=== PATIENT | female | born 1995 | race Two or more races ===

== ENCOUNTER 2024-02-18 11:57 | Day surgery (SDC) | payer MEDICAID, SELFPAY ==
[2024-02-18] VITALS (11 sets, daily range): BP systolic 95–125; BP diastolic 61–78; PULSE 70–94; RESP 13–20; TEMP 36.2–36.7; O2SAT 93–100; BMI 23.8; BMI 24.0
--- NOTE | 2024-02-18 12:13 | EDNOTE_ITS ---
ED Abdominal Pain E/HPI General Chief Complaint: Abdominal Pain Stated complaint: POSSIBLE APPENDICITS Time seen by provider: 02/18/24 12:01 Arrival date/time: 02/18/24 11:57 RME / HPI RME / HPI narrative: 28-year-old female patient with no significant past medical history, came in for evaluation regarding right lower quadrant pain. Patient was sent to us by PCP. Onset of symptoms for the last 2 days as worsening right lower quadrant pain, described as dull ache, severity 5 out of 10. Patient denies any vomiting denies any fever denies any dysuria denies any diarrhea. Patient last menstruation was January 12. Denies any abdominal surgery. No medications taken prior to arrival. Related Data Home Medications ?Medication ?Instructions ?Recorded ?Confirmed No Known Home Medications 02/18/24 02/18/24 Allergies Allergy/AdvReac Type Severity Reaction Status Date / Time No Known Allergies Allergy Verified 02/18/24 12:00 Review of Systems Review of Systems Narrative Review of Systems: Review of system reviewed and within normal limits except mentioned in HPI ED Exam Narrative Physical exam: VITAL SIGNS: Reviewed. GENERAL APPEARANCE: Alert and interactive, follows commands, no acute distress, HEAD AND FACE: Non-traumatic. ENT: PERRL, pink conjunctivitis, eyelid no trauma, Mucous membrane moist. NECK: Supple, nontender, no nuchal rigidity. CHEST: No tenderness, no crepitus, no paradoxical movement, no retractions. LUNGS: Clear, well ventilated, symmetric, no rales, no wheezing, no ronchi, no stridor, good breath sounds bilaterally. HEART: Regular rate, regular rhythm, no murmur, no gallops. ABDOMEN: Soft, positive bowel sounds, nondistended, no guarding, right lower quadrant tenderness, no rebound, no masses, RECTAL: Deferred. GENITAL: Deferred. NEUROLOGICAL: Gross motor function intact sensory function intact, Appropriate for age. MUSCULOSKELETAL: low back nontender, full range of motion. EXTREMITIES: Nontender, full range of motion. SKIN: Color pink, dry, no rash, no lacerations, no abrasions, no contusions. LYMPHATICS: Deferred. Course Quality Measures none Orders Category Date Time Status COVID-19 Screening Questionnaire NOW Care 02/18/24 17:[address] Screening NOW Care 02/18/24 13:31 Active Decision to Admit X1 Care 02/18/24 17:42 Completed Insert IV NOW Care 02/18/24 17:57 Active Consult to General Surgery Stat Cons 02/18/24 17:[address] abdomen pelvis w con Stat Exams 02/18/24 13:30 Completed CBC Stat Lab 02/18/24 12:25 Completed Comprehensive Metabolic Panel Stat Lab 02/18/24 12:25 Completed HCG Qualitative,Urine Stat Lab 02/18/24 13:00 Completed Partial Thromboplastin Time Stat Lab 02/18/24 12:25 Completed Prothrombin Time with INR Stat Lab 02/18/24 12:25 Completed Urinalysis, C/S if Indicated Stat Lab 02/18/24 13:00 Completed Morphine Inj Med 02/18/24 17:37 Discontinued 4 mg IVP Q1H STA Ondansetron Inj [Zofran Inj] Med 02/18/24 17:37 Discontinued 4 mg IV X1 ONE Piper/Tazo 3.375 gm [Zosyn] Med 02/18/24 17:37 Discontinued 3.375 gm in 50 ml IV X1 Sodium Chloride 0.9% 1000 ml [Ns] 1,000 ml Med 02/18/24 17:38 Discontinued IV 999 mls/hr Vital Signs Vital signs: Vital Signs Temperature 97.8 F 02/18/24 12:13 Pulse Rate 72 02/18/24 12:13 Respiratory Rate 17 02/18/24 12:13 Blood Pressure 125/61 02/18/24 12:13 Pulse Oximetry (%) 98 02/18/24 12:13 Oxygen Delivery Method Room Air 02/18/24 12:13 Abdominal Pain MDM MDM Narrative MDM Narrative:: 28-year-old female patient with no significant past medical history, came in for evaluation regarding right lower quadrant pain. Patient was sent to us by PCP. Onset of symptoms for the last 2 days as worsening right lower quadrant pain, described as dull ache, severity 5 out of 10. Patient denies any vomiting denies any fever denies any dysuria denies any diarrhea. Patient last menstruation was January 12. Denies any abdominal surgery. No medications taken prior to arrival. Laboratory workup significant for leukocytosis 12,000. The rest of the labs unremarkable. CT scan of the abdomen/pelvis showed acute appendicitis. Patient received IV fluids, IV Zosyn IV morphine and Zofran. Spoke with general surgeon, Dr. Harry, who admitted the patient. For acute appendicitis Patient data External records reviewed:: None Clinical information provided by:: patient Social determinants that could affect healthcare access:: none Patient has the following chronic illnesses:: None How is presenting disease/condition affected by chronic disease/condition?: no chronic disease Evaluation data The following diagnostics were reviewed and interpreted by me:: lab results and radiology exam(s) Lab and/or radiology exams considered but not ordered:: None Interpretation Summary: Leukocytosis 12.2. CT scan of the abdomen pelvis showed acute appendicitis Medications / Prescriptions Medications or Prescriptions considered but not ordered:: None Medication administrations:: Medication Administration History Acetaminophen (Acetaminophen 325 Mg Tablet) 650 mg PO Q6H PRN PRN Reason: Fever >101.5 Stop: 03/19/24 18:19 Potassium Chloride/Dextrose/Sod Cl (Kcl 20 Meq/L In D5-1/2ns) 20 meq in 1,000 mls @ 75 mls/hr IV .[id number] ELIZA Stop: 03/19/24 18:29 Last Admin: 02/18/24 19:50 Dose: 75 mls/hr Documented By: AGUILA Ondansetron HCl (Ondansetron Inj 2 Mg/Ml Inj 2 Ml) 4 mg IV Q6H PRN PRN Reason: NAUSEA OR VOMITING Stop: 03/19/24 18:19 Discontinued Medications Bupivacaine HCl (Bupivacaine Mpf 0.5% 10 Ml Vial) Confirm Administered Dose 20 ml .ROUTE .STK-MED ONE Stop: 02/18/24 19:52 Fentanyl Citrate (Fentanyl Cit Inj 50 Mcg/Ml Amp 2ml) Confirm Administered Dose 100 mcg .ROUTE .STK-MED ONE Stop: 02/18/24 20:41 Glycopyrrolate (Glycopyrrolate Inj 0.2 Mg/Ml Vial 5 Ml) Confirm Administered Dose 1 mg .ROUTE .STK-MED ONE Stop: 02/18/24 20:49 Hydromorphone HCl (Hydromorphone Inj 2 Mg/Ml Vial) Confirm Administered Dose 2 mg .ROUTE .STK-MED ONE Stop: 02/18/24 20:41 Piperacillin/Tazobactam/Dextrose (Zosyn) 3.375 gm in 50 mls @ 100 mls/hr IV X1 ONE Stop: 02/18/24 18:06 Last Infusion: 02/18/24 18:53 Dose: Infused Documented By: Admin: 02/18/24 18:11 Dose: 100 mls/hr Documented By: TREVOR Sodium Chloride (Ns) 1,000 mls @ 999 mls/hr IV .Q1H1M ONE Stop: 02/18/24 18:38 Last Infusion: 02/18/24 19:34 Dose: Infused Documented By: Admin: 02/18/24 18:11 Dose: 999 mls/hr Documented By: TREVOR Cefoxitin Sodium 2 gm/ Sodium (Chloride) 50 mls @ 100 mls/hr IV X1 ONE Stop: 02/18/24 18:49 Last Infusion: 02/18/24 20:00 Dose: Infused Documented By: Admin: 02/18/24 19:26 Dose: 100 mls/hr Documented By: GENNA Acetaminophen (Ofirmev Inj) Confirm Administered Dose 100 mls @ ud IV .STK-MED ONE Stop: 02/18/24 20:51 Midazolam HCl (Midazolam Inj 1 Mg/Ml Vial 2 Ml) Confirm Administered Dose 2 mg .ROUTE .STK-MED ONE Stop: 02/18/24 20:51 Morphine Sulfate (Morphine Sulf Inj 10 Mg/Ml Vial) 4 mg IVP Q1H STA Stop: 02/18/24 17:38 Last Admin: 02/18/24 18:11 Dose: Not Given Documented By: TREVOR Non-Admin Reason: Patient Refused Ondansetron HCl (Ondansetron Inj 2 Mg/Ml Inj 2 Ml) 4 mg IV X1 ONE; Protocol Stop: 02/18/24 17:38 Last Admin: 02/18/24 18:11 Dose: Not Given Documented By: TREVOR Non-Admin Reason: Patient Refused Propofol (Propofol Inj 10 Mg/Ml Vial 20 Ml) Confirm Administered Dose 200 mg IV .STK-MED ONE Stop: 02/18/24 20:41 Rocuronium [place] (Rocuronium Inj 10 Mg/Ml Vial 10 Ml) Confirm Administered Dose 100 mg .ROUTE .STK-MED ONE Stop: 02/18/24 20:41 IV Zosyn fluids morphine and Zofran Consultations Consultation(s) initiated? (list below): Yes Consultation #1 (Physician, Specialty, Details): Dr. Harry, general surgeon: Diagnosis Differential diagnosis abdominal pain: abdominal pain, acute appendicitis and constipation Most likely diagnosis given after review of the tests above:: Acute appendicitis Admission Indicated Admission indicated?: indicated Admission Request Was there a request for admission?: Yes Admission Attestation Admission request attestation: Dr. Harry agrees to accept the patient for admission. Disposition Plan Disposition Plan: Admit Discharge Plan Plan Patient Disposition: Other Care w/in Hosp ([facility]) Problem List Clinical Impression: Unspecified acute appendicitis
[2024-02-18 12:44] LABS: Basophils % (Auto) 0 % (0-2.5); Eosinophils # (Auto) 0.1 Thou/mm3 (0.0-0.5); Eosinophils % (Auto) 1 % (0-10); Hematocrit 38.1 % (36.0-46.0); Hemoglobin 12.7 g/dL (12.0-16.0); Immature Granulocytes % (Auto) 0 % (0-0); Immature Granulocytes Auto 0.03 Thou/mm3 (0.00-0.00); Lymphocytes # (Auto) 2.5 Thou/mm3 (1.0-4.8); Lymphocytes % (Auto) 20 % (10-50); Mean Corpuscular HGB Conc 33.3 g/dl (31.0-37.0); Mean Corpuscular Hemoglobin 29.8 pg (25.0-35.0); Mean Corpuscular Volume 89 fL (80-100); Monocytes # (Auto) 0.9 Thou/mm3 (0.0-0.8); Monocytes % (Auto) 7 % (0-12); Neutrophils # (Auto) 8.7 Thou/mm3 (1.8-7.7); Neutrophils % (Auto) 72 % (37-80); Nucleated Red Blood Cell % 0 /100 WBC (0); Platelet Count 364 Thou/mm3 (140-440); RDW Standard Deviation 42.3 fL (36.4-46.3); Red Blood Count 4.26 Miln/mm3 (4.00-5.20); White Blood Count 12.2 Thou/mm3 (3.6-11.0)
[2024-02-18 12:58] LABS: Partial Thromboplastin Time 28.2 Seconds (22.0-36.0); Prothrombin Time 11.3 Seconds (9.0-12.2)
[2024-02-18 13:02] LABS: Alanine Aminotransferase 18 U/L (10-49); Albumin, Serum 4.7 gm/dL (3.5-5.0); Albumin/Globulin Ratio 1.6 (1.2-2.2); Alkaline Phosphatase 158 U/L (46-116); Anion Gap 6 (7-16); Aspartate Amino Transferase 23 U/L (0-34); BUN/Creatinine Ratio 12 Ratio (12-20); Bilirubin,Total 0.8 mg/dL (0.3-1.2); Blood Urea Nitrogen 7 mg/dL (9-23); Calcium 9.2 mg/dL (8.3-10.6); Calcium (Corrected) 9.2 mg/dL (8.5-10.1); Carbon Dioxide 25.9 mMol/L (20.0-31.0); Chloride 108 mMol/L (98-107); Creatinine (Component) 0.6 mg/dL (0.6-1.3); Estimated Creatinine Clearance 97.9 mL/min (>60); Glucose 85 mg/dL (74-106); Osmolality,Calculated 276 (275-295); Potassium 3.9 mMol/L (3.4-5.1); Sodium 140 mMol/L (136-145); Total Protein 7.7 gm/dL (5.7-8.2); eGFR > 60 See Note
[2024-02-18 13:07] LABS: Collection Type, Urine Clean Catch
[2024-02-18 13:23] LABS: HCG Qualitative,Urine Negative
--- NOTE | 2024-02-18 13:30 | XR_ITS ---
Examination: CT abdomen with intravenous contrast CT pelvis with intravenous contrast 2-D coronal reconstructions 2-D sagittal reconstructions Date and time of exam:February 18, 2024 1633 hours INDICATIONS: Onset right lower abdominal pain beginning 3 days ago. CTDI: vol (mGy) 6.70 DLP: (mGycm) 338 Technique: Multiple axial sections of the abdomen and pelvis have been obtained. 64 slice high-resolution scanner used. 3 mm axial sections have been obtained, post intravenous injection cc Isovue-370 2-D sagittal, coronal reconstructions obtained. Low dose protocols were performed. One or more of the following dose reduction techniques were used; automated exposure control, adjustment of the mA and/or KV according to patient size, use of iterative reconstruction technique. Findings: No focal liver or splenic lesions No gallstones No pancreatic or adrenal mass No renal or ureteral calculi, no hydronephrosis Aorta normal size Fluid-filled enlarged inflamed appendix retrocecal, axial images 107 through 129 No pelvic abscess Urinary bladder intact Anteverted uterus with no adnexal mass The osseous structures are intact IMPRESSION: Acute appendicitis, negative for peritonitis, negative for pelvic abscess
[2024-02-18 13:59] LABS: Bacteria,Urine Rare; Bilirubin,Urine Negative (Negative); Blood,Urine Negative (Negative); Color,Urine Lt-Yellow (Lt Yel-Yel); Culture Indicated,Urine Not Indicated; Glucose, Urine Negative (Negative); Ketones,Urine Negative (Negative); Leukocyte Esterase,Urine Negative (Negative); Nitrite,Urine Negative (Negative); Protein,Urine Negative (Neg - Trace); RBC,Urine 2 /hpf (0-3); Specific Gravity,Urine 1.019 (1.001-1.035); Squamous Epithelial Cell,Urine 15 /hpf (0-5); Urobilinogen,Urine Negative mg/dL (0.0-1.0); WBC,Urine 2 /hpf (0-5)
[2024-02-18 14:03] LABS: Clarity,Urine Hazy (Clear/Hazy)
[2024-02-18] MEDS: PIPER/TAZO 3.375 GM 3.375 GM/50 ML BAG IV (18:11)
[2024-02-18] MEDS: SODIUM CHLORIDE 0.9% 1000 ML 1,000 ML 999 ML IV (18:11)
[2024-02-18] MEDS: CEFOXITIN 2 GM in SODIUM CHLORIDE 0.9% (P) 50 ML IV (19:26)
[2024-02-18] MEDS: KCL 20 mEq/L in D5-1/2NS 20 MEQ/1,000 ML BAG 75 MEQ IV (19:50)
--- NOTE | 2024-02-18 20:07 | ESHP_ITS ---
[facility] Date of Admission 02/18/24 18:20 Chief Complaint Chief Complaint: Right lower quadrant abdominal pain with nausea and vomiting HPI 28-year-old female without significant past medical history presented to the em ergency department with acute onset of abdominal pain. Her pain started about 2 days ago. The pain was initially intermittent. Since earlier today her pain has become persistent, progressively worse and localized over right lower quadrant. She has had nausea and vomiting, but denies fever, chills, diarrhea, constipation or dysuria. She denies having similar symptoms in the past. Review of Systems Constitutional Constitutional: Denies chills and Denies fever(s) Cardiovascular Cardiovascular: Denies chest pain Respiratory Respiratory: Denies cough Gastrointestinal Gastrointestinal: Reports abdominal pain, Reports nausea and Reports vomiting Genitourinary Genitourinary: Denies difficulty voiding Hematologic/Lymphatic Hematologic/Lymphatic: Denies easy bleeding and Denies easy bruising Past Medical History Surgical History OTHER SURGICAL HX: No surgeries in the past Social History SMOKING STATUS: Never smoker SUBSTANCE USE: does not use ALCOHOL: Never Meds Home Medications and Allergies Home Medications ?Medication ?Instructions ?Recorded ?Confirmed ?Type No Known Home Medications 02/18/24 02/18/24 History Allergies Allergy/AdvReac Type Severity Reaction Status Date / Time No Known Allergies Allergy Verified 02/18/24 12:00 Exam Vital Signs Temp Pulse Resp BP Pulse Ox O2 Del Method 98 F 75 16 124/77 99 Room Air 02/18/24 16:58 02/18/24 16:58 02/18/24 16:58 02/18/24 16:58 02/18/24 16:58 02/18/24 16:58 Constitutional Constitutional: no acute distress Routine Respiratory Exam Respiratory: Present CTA bilaterally Routine Cardiovascular Exam Cardiovascular: Present RRR Routine Abdominal Exam Abdominal: Present soft, normoactive bowel sounds and tenderness (Right lower quadrant tenderness to palpation with guarding, no rebound tenderness or peritonitis at this time); Absent distended Assessment & Plan Problem List (1) Unspecified acute appendicitis: Qualifiers: Acute appendicitis type: unspecified acute appendicitis type Qualified Code(s): K35.80 - Unspecified acute appendicitis Status: Acute Plan Will take patient to operating room for laparoscopic possible open appendectomy. Risks include but not limited to infection, bleeding, injury to bowel, bladder, uterus, ovaries, surround neurovascular structures discussed with the patient via senior corporate recruiter. Benefits alternatives explained to her, all her questions answered, she agreed and consented to proceed with the operation. Quality Measures Quality Measures none
--- NOTE | 2024-02-18 20:22 | PC.NURSE ---
SPOKE TO TEA-RN FROM SURGERY AND GAVE REPORT. PT TO BE TRANSFER TO OR SOON.
--- NOTE | 2024-02-18 21:26 | PD.SUROPNT ---
Date of Procedure 02/18/24 Pre Op Diagnosis Acute appendicitis Post Op Diagnosis Acute appendicitis Procedure Laparoscopic appendectomy Findings Inflamed, dilated and hyperemic appendix without perforation Procedure Description Patient was brought into the operating room in supine position. After administration of general endotracheal anesthesia, abdomen was prepped and draped in standard surgical manner. A Veress needle was inserted through the umbilicus and pneumoperitoneum was obtained up to 15 mmHg. The Veress needle was removed and a 5 mm umbilical incision was made. A 5 mm trocar was placed and laparoscopic camera was inserted. Under direct visualization a laparoscopic camera a 5 mm trocar placed in suprapubic region and a 10 mm trocar placed in left lower quadrant. The abdomen was inspected, the cecum was identified and followed until the appendix was identified. The appendix was noted to be inflamed, dilated and hyperemic without perforation. A window was created between the appendix and mesoappendix and the appendix was divided near the appendix and cecal junction with blue Endo PÉREZ stapling device. The mesoappendix was divided with garcia Endo PÉREZ stapling device. The appendix was placed inside an Endo Catch and removed from the abdomen utilizing left lower quadrant trocar site. Abdomen and pelvis copiously and thoroughly washed and irrigated, all the fluids were suctioned and the suctioned fluid returned clear. Hemostasis was adequate and satisfactory, staple lines were intact without bleeding or any leakage. Left lower quadrant trocar sites fascial defect was closed with 0 Vicryl using Endo closure device. Instruments and trocars removed, pneumoperitoneum was evacuated and the incisions closed with 4-0 Monocryl subcuticular fashion. Instruments, needles and sponge counts were reported to be correct ??2. Patient tolerated the procedure well, was extubated, breathing spontaneously and without difficulty and was transferred to postanesthesia care in stable condition. Anesthesia GETA and local Pathology / specimen Other (Appendix) Estimated Blood Loss 10 Condition Stable Disposition PACU Surgeon Mita Harry MD Surgical Staff Operation Date: 02/18/24 20:45 Case Staff FOOD SERVICE COORDINATOR: Herb Cordova RN First Assistant: Jennifer Lilly
--- NOTE | 2024-02-18 21:30 | SUR.PHASEI ---
Pt. arrived to recovery via gurney, eyes closed, responds to verbal commands, VSS, no c/o pain of nausea at this time, lung sounds clear, equal expansion arianne., pt. receiving 6 liters 02 via oxymask, IV flushed and patent, lap sites x4 to abdomen, dermabond intact, no active bleeding or redness noted. Report received from Andrei ALVAREZ and Herb SCHUSTER.
--- NOTE | 2024-02-18 21:57 | SUR.PHASEI ---
Called and gave report on pt. s/p surgery to Noreen ALVAREZ on M/S unit.
--- NOTE | 2024-02-18 22:15 | SUR.PHASEI ---
Pt. transferred to room 372 via gurney with all of belongings by staff, VSS, no c/o pain or nausea at this time, lap sites x4 CDI, IV flushed and patentTyesha RN assumed care of pt.
[2024-02-18] MEDS: ONDANSETRON INJ 2 MG/ML INJ 2 ML 4 MG IV (23:10)
[2024-02-19] MEDS: HYDROcodone/APAP 5/325 TABLET 1 TAB PO (03:49)
[2024-02-19 04:00] VITALS: BP 108/60; PULSE 93; RESP 17; TEMP 36.2; O2SAT 98
[2024-02-19 08:00] VITALS: BP 100/50; PULSE 62; RESP 17; TEMP 36.3; O2SAT 99
[2024-02-19] MEDS: bisacodyL 5 MG TABEC 10 MG PO (08:09)
--- NOTE | 2024-02-19 11:17 | PC.SS ---
Patient is alert/oriented. Patient admitted for acute appendicitis. Patient is independent with ADL's. No DMe. Spouse is listed as alt medical decision maker. Patient went to surgery yesterday with Dr. Harry. Patient d/c plan is to return home. PCP: Dr. Ohara. SS will follow up with any changes in d/c plan. Family to transport home when medically stable and ready for discharge.
[2024-02-19 12:00] VITALS: BP 127/65; PULSE 84; RESP 16; TEMP 36.3; O2SAT 97
--- NOTE | 2024-02-19 12:44 | ESPR_ITS ---
Documentation for date of: 02/19/24 Subjective Subjective Narrative: Patient is seen and examined. Pain is improving. She is tolerating diet without nausea or vomiting Exam Vital Signs Temp Pulse Resp BP Pulse Ox O2 Del Method O2 Flow Rate 97.3 F 62 17 100/50 L 99 Room Air 2 02/19/24 08:00 02/19/24 08:00 02/19/24 08:00 02/19/24 08:00 02/19/24 08:00 02/19/24 08:00 02/18/24 21:40 Constitutional Constitutional: no acute distress Routine Abdominal Exam Abdominal: Present soft, normoactive bowel sounds and tenderness (Mild rosana- incisional tenderness. Incisions are clean, dry and intact); Absent distended Assessment & Plan Assessment Additional comments: Postop day #1 status post laparoscopic appendectomy Plan Will discharge home Procedures Procedures Laparoscopic appendectomy
== END 2024-02-19 13:27 | disposition home or self-care (01) ==
LOC: SERX 12:23 → SERHOLD 20:09 → S2EX 02-19 07:47 → S3SX 02-19 07:48
PROVIDERS: Nurse Practitioner Family; Emergency Provider Emergency Medicine; PCP Obstetrics & Gynecology; Visit Provider Surgery
PROC: 0DTJ4ZZ Resection of Appendix, Percutaneous Endoscopic Approach (ICD-10-PCS; CPT 44970; principal; 2024-02-18 20:30)
DX: K35.80 Unspecified acute appendicitis (principal)
CPT/HCPCS: 44970; 36415; 74177; 80053; 81001; 81025; 85025; 85610; 85730; 96361; 96365; 96367; 99285; A4217; A4649; J0131; J0694; J2250; J2405; J2543; J2704; J3010; J3480; J3490; J7030; J7050; Q9967; A9270; J1596

== ENCOUNTER 2024-02-23 15:34 | Emergency (ER) | payer MEDICAID, SELFPAY ==
[2024-02-23] VITALS (7 sets, daily range): BP systolic 115–117; BP diastolic 61–67; PULSE 101–123; RESP 18–23; TEMP 36.9–39.6; O2SAT 97–99; BMI 24.0
--- NOTE | 2024-02-23 15:36 | EKG_ITS ---
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
--- NOTE | 2024-02-23 15:37 | XR_ITS ---
Examination: CT abdomen with intravenous contrast CT pelvis with intravenous contrast 2-D coronal reconstructions 2-D sagittal reconstructions Date and time of exam:August 22, 2024 at 1857 hrs. Comparison February 18, 2024 Indications: Acute appendicitis February 18, 2024, postop abdominal pain and fever 4 days. CTDI: vol (mGy) and DLP: (mGycm) 361 Technique: Multiple axial sections of the abdomen and pelvis have been obtained. 64 slice high-resolution scanner used. 3 mm axial sections have been obtained, post intravenous injection 60 cc Isovue-370 2-D sagittal, coronal reconstructions obtained. Low dose protocols were performed. One or more of the following dose reduction techniques were used; automated exposure control, adjustment of the mA and/or KV according to patient size, use of iterative reconstruction technique. Findings: Atelectasis versus mild pneumonia both bases, clinical correlation advised No focal liver or splenic lesion No gallstones No pancreatic or adrenal mass No hydronephrosis Aorta normal size Small fat-containing umbilical hernia Absent appendix, No pericecal or pelvic abscess No uterine mass Right adnexal ovarian follicular cysts, the largest 16 mm No free fluid in the pelvis Urinary bladder intact Mild small bowel ileus Impression: Atelectasis versus pneumonia both bases, suggest PA chest follow-up Post appendectomy No pericecal or pelvic abscess Small right ovarian follicular cysts, the largest 16 mm
--- NOTE | 2024-02-23 15:49 | PD.EDADULT ---
ED General RME/HPI General Chief complaint: Abdominal Pain Stated complaint: ABD PAIN, FEVER Time Seen by Provider: 02/23/24 15:36 Arrival date/time: 02/23/24 15:34 RME / HPI RME / HPI narrative: DR. MALIN MAIN ED EVALUATION: 28 year old female with past medical history significant for gallstones and recent appendectomy Dr. Harry 02/18/24 presents to the Emergency Department [facility] with complaint of abdominal pain with associated fever and chills. Symptoms are moderate. Related Data Previous Rx's ?Medication ?Instructions ?Recorded docusate sodium 100 mg capsule 100 mg PO BID #30 caps 02/19/24 (Colace) hydrocodone 5 mg-acetaminophen 325 1 tab PO Q6H PRN pain (scale score 02/19/24 mg tablet 7-10) #10 tabs ibuprofen 600 mg tablet 600 mg PO Q8H PRN pain (scale 02/19/24 score 4-6) #15 tabs Allergies Allergy/AdvReac Type Severity Reaction Status Date / Time No Known Allergies Allergy Verified 02/18/24 21:40 Review of Systems Review of Systems Systems Reviewed: All systems reviewed, normal except as documented Narrative Review of Systems: GEN: + fever, + chills, no weight loss EYES: No discharge, no visual changes, no pain HEENT: No ear pain, no congestion, no sore throat PULM: No shortness of breath, no cough, no congestion CV: No chest pain, no dyspnea on exertion, no palpitations GI: No nausea, no vomiting, no diarrhea, + abdominal pain (see HPI), no constipation : No frequency, no urgency and no dysuria MUSC/SKEL: No joint pain, no back pain SKIN: No rash PSYCH: No hallucinations, no depression HEME/LYMPH: No easy bleeding or bruising tendencies NEURO: No weakness, no headache Past Medical History Social History SMOKING STATUS: Never smoker SUBSTANCE USE: does not use ALCOHOL: Never ED Exam Narrative Physical exam: GENERAL APPEARANCE: alert and oriented x 4, well-developed, well-nourished; febrile, 103.2 F. Diaphoretic. VITALS: All vitals were reviewed and the pulse ox is 97% on room air, which is normal according to my interpretation. HEENT: Normocephalic, atraumatic; pupils equal, round, reactive to light; EOMI; mucous membranes pink, moist; oropharynx clear NECK: Supple LUNGS: CTABL; no wheezes, no rales, no rhonchi HEART: Tachycardic at 121, normal S1, S2; no murmurs ABDOMEN: there is diffuse tenderness on palpation BACK: no CVA tenderness EXTREMITIES: atraumatic; no edema NEUROLOGIC: awake; alert and oriented x4; cranial nerves II-XII grossly intact; no focal sensory or motor deficits PSYCHIATRIC: appropriate mood and affect SKIN: warm, diaphoretic, normal color; no rashes Course Course Course Narrative: 1604: Sepsis alert initiated. Orders made at this time are congruent with ED Adult Sepsis Order List. Re-evaluation is to be completed. 1537: Fluids started. 1634: Sepsis reassessment performed consisting of lab review, vitals, physical exam including auscultation of heart, lungs, and visual evaluation of capillary refills, mucosal membranes and extremities. 1800: Patient was signed out to Dr. Lawrence. Past medical, surgical, social and family history reviewed. Vitals and home medications reviewed. Results and treatment plan discussed. They will assume the care of the patient at this time and will follow the patient, pending remainder of diagnostic tests and final dispostion. Quality Measures Current suspected stage: sepsis Possible source: GI tract/intra-abdominal Blood cultures ordered: yes Antibiotic ordered: Yes Pertinent labs: 02/23/24 16:10 Lactic Acid 1.2 mMol/L (0.4-2.0) Procalcitonin < 0.04 ng/ml (0.0-0.49) sepsis Orders Category Date Time Status CT Screening NOW Care 02/23/24 15:37 Completed Project Inspector NOW Care 02/23/24 15:36 Completed EKG (ED ONLY) *Do not use* NOW Care 02/23/24 15:36 Completed Insert IV NOW Care 02/23/24 16:[address] abdomen pelvis w con Stat Exams 02/23/24 15:37 Completed EKG (ED Only) Stat Exams 02/23/24 15:36 Draft Beta HCG,Quantitative Stat Lab 02/23/24 16:10 Completed Blood Culture (Lab) Stat Lab 02/23/24 16:05 Completed CBC Stat Lab 02/23/24 16:10 Completed Comprehensive Metabolic Panel Stat Lab 02/23/24 16:10 Completed Lactate (Lactic Acid) Stat Lab 02/23/24 16:10 Completed Lipase Stat Lab 02/23/24 16:10 Completed Magnesium Stat Lab 02/23/24 16:10 Completed Procalcitonin Stat Lab 02/23/24 16:10 Completed Urinalysis Stat Lab 02/23/24 19:50 Completed Urine Culture Stat Lab 02/23/24 19:50 Completed Acetaminophen Tab [Tylenol ES Tab] Med 02/23/24 16:34 Discontinued 1,000 mg PO X1 ONE Piper/Tazo Inj [Zosyn Inj] 3.375 gm Med 02/23/24 16:03 Discontinued Sodium Chloride 0.9% (P) [Ns 0.9% (P)] 50 ml IV X1 Sodium Chloride 0.9% 1000 ml [Ns] 1,000 ml Med 02/23/24 15:37 Discontinued IV 999 mls/hr Vital Signs Vital signs: Vital Signs Temperature 100.9 F H 02/23/24 15:36 Pulse Rate 119 H 02/23/24 15:36 Respiratory Rate 20 02/23/24 15:36 Blood Pressure 115/61 02/23/24 15:36 Pulse Oximetry (%) 97 02/23/24 15:36 Oxygen Delivery Method Room Air 02/23/24 15:36 [facility] Patient data External records reviewed:: [facility] previous records (Reviewed appendectomy note by Dr. Harry, dated 02/18/24.) and EMS form Clinical information provided by:: patient and EMS Social determinants that could affect healthcare access:: none Patient has the following chronic illnesses:: Gallstones and appendectomy Dr. Harry 02/18/24. How is presenting disease/condition affected by chronic disease/condition?: exacerbated by Evaluation data The following diagnostics were reviewed and interpreted by me:: lab results, radiology exam(s) and EKG tracing(s) (sinus tachycardia, rate 126, no STEMI) Lab and/or radiology exams considered but not ordered:: none Interpretation Summary: Pending diagnostic tests. Medications Medications considered but not ordered:: none Medication administrations:: Medication Administration History Discontinued Medications Acetaminophen (Acetaminophen 500 Mg Tablet) 1,000 mg PO X1 ONE Stop: 02/23/24 16:35 Last Admin: 02/23/24 16:51 Dose: 1,000 mg Documented By: DO Sodium Chloride (Ns) 1,000 mls @ 999 mls/hr IV .Q1H1M ONE Stop: 02/23/24 16:37 Last Infusion: 02/23/24 18:29 Dose: Infused Documented By: Admin: 02/23/24 16:52 Dose: 999 mls/hr Documented By: DO Piperacillin Sod/Tazobactam (Sod 3.375 gm/ Sodium Chloride) 50 mls @ 100 mls/hr IV X1 ONE Stop: 02/23/24 16:32 Last Infusion: 02/23/24 18:27 Dose: Infused Documented By: Admin: 02/23/24 16:52 Dose: 100 mls/hr Documented By: DO see above Consultations Consultation(s) initiated? (list below): No Diagnosis Differential Diagnosis ED Complaint MDM: sepsis, surgical site infection, DVT Most likely diagnosis given after review of the tests above:: No official diagnoses at this time, still pending diagnostic tests. Patient signout to the shift manager provider. Admission Indicated Admission indicated?: indicated Explain why admission is indicated or not indicated:: No final disposition plan at this time, still pending diagnostic tests. Patient signout to the shift manager provider. Admission Request Was there a request for admission?: No Disposition Plan Disposition Plan: other (specify) (Patient signout to the shift manager provider. ) Medical Decision Making MDM Narrative MDM Narrative: I, Arely Gilliam, am scribing for and in the presence of Dr. Malin. Differential Diagnosis Differential Diagnosis: sepsis, surgical site infection, DVT Lab Data 02/23/24 16:10 02/23/24 16:10 Labs: Lab Results 02/23/24 02/23/24 Range/Units 16:10 19:50 WBC 16.5 H (3.6-11.0) Thou/mm3 RBC 4.28 (4.00-5.20) Miln/mm3 Hgb 12.9 (12.0-16.0) g/dL Hct 38.1 (36.0-46.0) % MCV 89 (80-100) fL MCH 30.1 (25.0-35.0) pg MCHC 33.9 (31.0-37.0) g/dl RDW Std Deviation 41.5 (36.4-46.3) fL Plt Count 323 D (140-440) Thou/mm3 Neut % (Auto) 84 H (37-80) % Lymph % (Auto) 9 L (10-50) % [place]ill % (Auto) 7 (0-12) % Eos % (Auto) 0 (0-10) % Baso % (Auto) 0 (0-2.5) % Neut # (Auto) 13.8 H (1.8-7.7) Thou/mm3 Lymph # (Auto) 1.5 (1.0-4.8) Thou/mm3 Traill # (Auto) 1.1 H (0.0-0.8) Thou/mm3 Eos # (Auto) 0.1 (0.0-0.5) Thou/mm3 Baso # (Auto) 0.0 (0.0-0.2) Thou/mm3 Immature Gran # (Auto) 0.05 H (0.00-0.00) Thou/mm3 Absolute Nucleated RBC 0.00 (0.00-0.00) Thou/mm3 Immature Gran % 0 (0-0) % Nucleated RBC % 0 (0) /100 WBC Sodium 138 (136-145) mMol/L Potassium 3.9 (3.4-5.1) mMol/L Chloride 103 (98-107) mMol/L Carbon Dioxide 25.6 (20.0-31.0) mMol/L Anion Gap 9 (7-16) BUN 8 L (9-23) mg/dL Creatinine 0.6 (0.6-1.3) mg/dL Estim Creat Clear Calc Not Performed. eGFR > 60 (60 - ) See Note BUN/Creatinine Ratio 13 (12-20) Ratio Glucose 95 (74-106) mg/dL Calculated Osmolality 273 L (275-295) Lactic Acid 1.2 (0.4-2.0) mMol/L Calcium 9.3 (8.3-10.6) mg/dL Corrected Calcium 9.3 (8.5-10.1) mg/dL Magnesium 1.8 (1.6-2.6) mg/dL Total Bilirubin 0.8 (0.3-1.2) mg/dL AST 17 (0-34) U/L ALT 17 (10-49) U/L Alkaline Phosphatase 148 H (46-116) U/L Total Protein 7.7 (5.7-8.2) gm/dL Albumin 4.8 (3.5-5.0) gm/dL Globulin 2.9 (2.3-3.5) gm/dL Albumin/Globulin Ratio 1.7 (1.2-2.2) Lipase 30 (12-53) U/L Procalcitonin < 0.04 (0.0-0.49) ng/ml Beta HCG, Quant < 1 (<5.0) mIU/mL Ur Collection Type Clean Catch Urine Color Colorless A (Lt Yel-Yel) Urine Clarity Clear (Clear/Hazy) Urine pH 7.0 (5.0-7.0) Ur Specific [place] 1.029 (1.001-1.035) Urine Protein Negative (Neg - Trace) Urine Glucose (UA) Negative (Negative) Urine Ketones Negative (Negative) Urine Blood Negative (Negative) Urine Nitrite Negative (Negative) Urine Bilirubin Negative (Negative) Urine Urobilinogen (Auto) Negative (0.0-1.0) mg/dL Ur Leukocyte Esterase Negative (Negative) Urine RBC < 1 (0-3) /hpf Urine WBC 0 (0-5) /hpf Ur Squamous Epith Cells 1 (0-5) /hpf Urine Bacteria None (None) Critical Care Time Critical Care Time Critical Care Time: Yes Total Critical Care Time (min.): 30 Attestation: For sepsis The high probability of sudden, clinically significant deterioration in the patient?s condition required the highest level of my preparedness to intervene urgently. The services I provided to this patient were to treat and/or prevent clinically significant deterioration. Services included the following: chart data review, reviewing nursing notes and/or old charts, documentation time, interventional sale consultant collaboration regarding findings and treatment options, medication orders and management, direct patient care, vital sign assessments and ordering, interpreting and reviewing diagnostic studies and lab tests. Aggregate critical care time includes only time during which I was engaged in work directly related to the patient?s care, as described above, whether at bedside or elsewhere in the Emergency Department. It did not include time spent performing other reported procedures or the services of residents, students, nurses or physician assistants. Discharge Plan Plan Patient Disposition: HOME (Self Care) Patient condition on transfer: Stable Prescriptions/Referrals Prescriptions/Med Rec: No Action docusate sodium [Colace] 100 mg capsule 100 mg PO BID Qty: 30 0RF ibuprofen 600 mg tablet 600 mg PO Q8H PRN (Reason: pain (scale score 4-6)) Qty: 15 0RF hydrocodone-acetaminophen 5-325 mg tablet 1 tab PO Q6H MDD 4 PRN (Reason: pain (scale score 7-10)) Qty: 10 0RF Referrals: No Primary/Family,Physician [Primary Care Provider] - In 1 week Problem List Clinical Impression: Post-op pain Patient/Caregiver Discharge Instructions Diet Instructions: Continue the diet as per Dr. Harry. Education Materials: Communicating About Pain Additional Instructions: Please continue medications as per your doctor and/or Dr. Harry. Return to emergency department for any worsening symptoms, fever, or any other concerns. You can call Dr. George's office in the next 24 to 72 hours let them know that you are here. Contin?e con los medicamentos seg?n lo indique stinson m?dico y/o el Dr. Harry. Regrese al departamento de emergencias si los s?ntomas empeoran, tiene fiebre o cualquier otra inquietud. Puede llamar al consultorio del Dr. George en las pr?ximas 24 a 72 horas para informarles que est? aqu?. Print Language: Bengali Stand Alone Forms: [employer] Award Info., Patient Portal Info Letter
[2024-02-23 16:23] LABS: Lactate (Lactic Acid) 1.2 mMol/L (0.4-2.0)
[2024-02-23 16:27] LABS: Basophils % (Auto) 0 % (0-2.5); Eosinophils # (Auto) 0.1 Thou/mm3 (0.0-0.5); Eosinophils % (Auto) 0 % (0-10); Hematocrit 38.1 % (36.0-46.0); Hemoglobin 12.9 g/dL (12.0-16.0); Immature Granulocytes % (Auto) 0 % (0-0); Immature Granulocytes Auto 0.05 Thou/mm3 (0.00-0.00); Lymphocytes # (Auto) 1.5 Thou/mm3 (1.0-4.8); Lymphocytes % (Auto) 9 % (10-50); Mean Corpuscular HGB Conc 33.9 g/dl (31.0-37.0); Mean Corpuscular Hemoglobin 30.1 pg (25.0-35.0); Mean Corpuscular Volume 89 fL (80-100); Monocytes # (Auto) 1.1 Thou/mm3 (0.0-0.8); Monocytes % (Auto) 7 % (0-12); Neutrophils # (Auto) 13.8 Thou/mm3 (1.8-7.7); Neutrophils % (Auto) 84 % (37-80); Nucleated Red Blood Cell % 0 /100 WBC (0); Platelet Count 323 Thou/mm3 (140-440); RDW Standard Deviation 41.5 fL (36.4-46.3); Red Blood Count 4.28 Miln/mm3 (4.00-5.20); White Blood Count 16.5 Thou/mm3 (3.6-11.0)
[2024-02-23] MEDS: ACETAMINOPHEN 500 MG TABLET 1000 MG PO (16:51)
[2024-02-23] MEDS: SODIUM CHLORIDE 0.9% 1000 ML 1,000 ML 999 ML IV (16:52)
[2024-02-23] MEDS: PIPER/TAZO INJ 3.375 GM in SODIUM CHLORIDE 0.9% (P) 50 ML IV (16:52)
[2024-02-23 16:56] LABS: Alanine Aminotransferase 17 U/L (10-49); Albumin, Serum 4.8 gm/dL (3.5-5.0); Albumin/Globulin Ratio 1.7 (1.2-2.2); Alkaline Phosphatase 148 U/L (46-116); Anion Gap 9 (7-16); Aspartate Amino Transferase 17 U/L (0-34); BUN/Creatinine Ratio 13 Ratio (12-20); Bilirubin,Total 0.8 mg/dL (0.3-1.2); Blood Urea Nitrogen 8 mg/dL (9-23); Calcium 9.3 mg/dL (8.3-10.6); Calcium (Corrected) 9.3 mg/dL (8.5-10.1); Carbon Dioxide 25.6 mMol/L (20.0-31.0); Chloride 103 mMol/L (98-107); Creatinine (Component) 0.6 mg/dL (0.6-1.3); Globulin 2.9 gm/dL (2.3-3.5); Glucose 95 mg/dL (74-106); Lipase 30 U/L (12-53); Magnesium 1.8 mg/dL (1.6-2.6); Osmolality,Calculated 273 (275-295); Potassium 3.9 mMol/L (3.4-5.1); Procalcitonin < 0.04 ng/ml (0.0-0.49); Sodium 138 mMol/L (136-145); Total Protein 7.7 gm/dL (5.7-8.2); eGFR > 60 See Note
[2024-02-23 18:33] LABS: Beta HCG,Quantitative < 1 mIU/mL (<5.0)
--- NOTE | 2024-02-23 18:48 | PD.EDADDENDU ---
Emergency Room Addendum <Arely Gilliam - Last Filed: 02/23/24 22:05> Addendum Narrative: 1800: Care assumed from Dr. Malin, the previous shift emergency physician. Past medical, surgical, social and family history reviewed. Vitals and home medications reviewed. I will assume the care of the patient at this time, pending remainder of diagnostic tests and final disposition. Please refer to the emergency department record for history and examination from initial visit.? Physical exam by me shows patient is tachycardic and febrile. RADIOLOGY Procedure(s): CT abdomen pelvis w con Accession Number(s): [id number] cc: David Cardenas MD; NO PRIMARY/FAMILY,PHYSICIAN; Kate Malin MD~ Examination: CT abdomen with intravenous contrast CT pelvis with intravenous contrast 2-D coronal reconstructions 2-D sagittal reconstructions Date and time of exam:August 22, 2024 at 1857 hrs. Comparison February 18, 2024 Indications: Acute appendicitis February 18, 2024, postop abdominal pain and fever 4 days. CTDI: vol (mGy) and DLP: (mGycm) 361 Technique: Multiple axial sections of the abdomen and pelvis have been obtained. 64 slice high-resolution scanner used. 3 mm axial sections have been obtained, post intravenous injection 60 cc [id number] 2-D sagittal, coronal reconstructions obtained. Low dose protocols were performed. One or more of the following dose reduction techniques were used; automated exposure control, adjustment of the mA and/or KV according to patient size, use of iterative reconstruction technique. Findings: Atelectasis versus mild pneumonia both bases, clinical correlation advised No focal liver or splenic lesion No gallstones No pancreatic or adrenal mass No hydronephrosis Aorta normal size Small fat-containing umbilical hernia Absent appendix, No pericecal or pelvic abscess No uterine mass Right adnexal ovarian follicular cysts, the largest 16 mm No free fluid in the pelvis Urinary bladder intact Mild small bowel ileus Impression: Atelectasis versus pneumonia both bases, suggest PA chest follow-up Post appendectomy No pericecal or pelvic abscess Small right ovarian follicular cysts, the largest 16 mm Dictated By: David Cardenas MD <Leonie Crawford - Last Filed: 02/23/24 23:42> Addendum Narrative: 1800: Care assumed from Dr. Malin, the previous shift emergency physician. Past medical, surgical, social and family history reviewed. Vitals and home medications reviewed. I will assume the care of the patient at this time, pending remainder of diagnostic tests and final disposition. Please refer to the emergency department record for history and examination from initial visit.? Physical exam by me shows patient is tachycardic and febrile. 2341: On re-evaluation, patient states she feels better compared to when she initially came in. She denies any cough, new abdominal pain or any other associated symptoms. Patient is stable to be discharged home. RADIOLOGY Procedure(s): CT abdomen pelvis w con Accession Number(s): [id number] cc: David Cardenas MD; NO PRIMARY/FAMILY,PHYSICIAN; Kate Malin MD~ Examination: CT abdomen with intravenous contrast CT pelvis with intravenous contrast 2-D coronal reconstructions 2-D sagittal reconstructions Date and time of exam:August 22, 2024 at 1857 hrs. Comparison February 18, 2024 Indications: Acute appendicitis February 18, 2024, postop abdominal pain and fever 4 days. CTDI: vol (mGy) and DLP: (mGycm) 361 Technique: Multiple axial sections of the abdomen and pelvis have been obtained. 64 slice high-resolution scanner used. 3 mm axial sections have been obtained, post intravenous injection 60 cc [id number] 2-D sagittal, coronal reconstructions obtained. Low dose protocols were performed. One or more of the following dose reduction techniques were used; automated exposure control, adjustment of the mA and/or KV according to patient size, use of iterative reconstruction technique. Findings: Atelectasis versus mild pneumonia both bases, clinical correlation advised No focal liver or splenic lesion No gallstones No pancreatic or adrenal mass No hydronephrosis Aorta normal size Small fat-containing umbilical hernia Absent appendix, No pericecal or pelvic abscess No uterine mass Right adnexal ovarian follicular cysts, the largest 16 mm No free fluid in the pelvis Urinary bladder intact Mild small bowel ileus Impression: Atelectasis versus pneumonia both bases, suggest PA chest follow-up Post appendectomy No pericecal or pelvic abscess Small right ovarian follicular cysts, the largest 16 mm Dictated By: David Cardenas MD
[2024-02-23 20:28] LABS: Collection Type, Urine Clean Catch; WBC,Urine 0 /hpf (0-5)
[2024-02-23 21:08] LABS: Bilirubin,Urine Negative (Negative); Blood,Urine Negative (Negative); Clarity,Urine Clear (Clear/Hazy); Color,Urine Colorless (Lt Yel-Yel); Glucose, Urine Negative (Negative); Ketones,Urine Negative (Negative); Leukocyte Esterase,Urine Negative (Negative); Nitrite,Urine Negative (Negative); Protein,Urine Negative (Neg - Trace); RBC,Urine < 1 /hpf (0-3); Specific Gravity,Urine 1.029 (1.001-1.035); Squamous Epithelial Cell,Urine 1 /hpf (0-5); Urobilinogen,Urine Negative mg/dL (0.0-1.0)
== END 2024-02-23 23:59 | disposition home or self-care (01) ==
PROVIDERS: Emergency Medicine; Emergency Provider Emergency Medicine
DX: G89.18 Other acute postprocedural pain (principal); R10.9 Unspecified abdominal pain; Z90.49 Acquired absence of other specified parts of digestive tract
CPT/HCPCS: 36415; 74177; 80053; 81001; 83605; 83690; 83735; 84145; 84702; 85025; 87040; 87086; 93005; 96365; 96366; 99285; A4649; J2543; J7030; J7050; Q9967; A9270